=== PATIENT | male | born 1935 | race Native Hawaiian/Other Pacific Islander ===

== ENCOUNTER 2023-02-06 21:08 | Emergency (ER) | payer OTHER ==
[~2023-02-06] VITALS: Ht 175.3 cm; Wt 90.5 kg
[~2023-02-06 21:08] MED LIST: ACET-206 PO; AMLODIPINE BESYLATE PO; APIX1TAB PO; ASCORBIC ACD500 MG PO; Artificial Tears 0.2 OPTH; CARV6.25 PO; COREG 6.25MG TAB PO; CORRECTOL100 MG PO; D325 MCG PO; DOCU100C10 PO; ELIQUIS5 MG PO; ESCI10TA PO; FEROSUL325 MG PO; FERROUS SULF325 MG PO; FURO20TA67 PO; KLOR-CON M1010 MEQ PO; MOTRIN 400MG TAB PO; MULTIVITAMI1 PO; NORVASC 5MG TAB PO; OMEPRAZOLE DR20 M1 PO; PANTOPRAZOLE 40MG TA PO; POTA10CA3 PO; REFRESH OPTIVE OPTH; ROPINIROLE0.5 MG PO; ZINC220 M1 PO
[2023-02-06 21:43] LABS: PLATELET COUNT 128 K/uL (142-355)
[2023-02-06 21:44] LABS: POTASSIUM 4.3 mmol/L (3.6-5.2)
[2023-02-06 22:54] VITALS: BP 135/62; TEMP 98
[2023-02-07] MEDS ORDERED: DONEPEZIL HYDRO10 M1 PO (08:08)
[2023-02-07] MEDS ORDERED: ESCI20TA PO (08:09)
[2023-02-07] MEDS ORDERED: ARTIFICIAL TEARS1 % OPTH (08:18)
[2023-02-07] MEDS ORDERED: TYLENOL325 MG PO (08:19)
[2023-02-07] MEDS ORDERED: IBUPROFEN 200200 MG PO (08:20)
[2023-02-07] MEDS ORDERED: TRAMADOL HYDROC50 MG PO (08:21)
== END 2023-02-06 22:54 | disposition other institution (70) ==
LOC: ED 21:08
PROVIDERS: Family Medicine
DX: F03.90 Unspecified dementia, unspecified severity, without behavioral disturbance, psychotic disturbance, mood disturbance, and anxiety (principal); G30.9 Alzheimer's disease, unspecified; F32.9 Major depressive disorder, single episode, unspecified; F41.9 Anxiety disorder, unspecified; I10 Essential (primary) hypertension; Z02.79 Encounter for issue of other medical certificate
CPT/HCPCS: 36415; 80053; 81002; 85027; 87635; 93005; 99283; U0003